=== PATIENT | male | born 1985 | race Caucasian/White ===

== ENCOUNTER 2017-07-02 10:30 | Emergency (ER) | payer OTHER ==
[2017-07-02 10:37] VITALS: TEMP 98.3; BMI 24.0
--- NOTE | 2017-07-02 11:22 | PDOC ---
*Physical Exam - Vital Signs Last Vital Signs Temp Pulse Resp BP Pulse Ox 98.3 F 65 16 137/84 100 07/02/17 10:34 07/02/17 10:34 07/02/17 10:34 07/02/17 10:34 07/02/17 10:34 Medical Decision Making - Medical Decision Making 07/02/17 13:31 Pt seen by the Advanced Practice Provider under my direct supervision Ancillary studies reviewed I agree with plan as outlined by the Advanced Practice Provider *DC/Admit/Observation/Transfer Diagnosis at time of Disposition: Acute epididymitis - Discharge Dispostion Disposition: HOME Condition at time of disposition: Good - Prescriptions Prescriptions: Ibuprofen [Motrin -] 600 mg PO QID #20 tablet - Referrals Referrals: Sridhar Douglas MD [Primary Care Provider] - - Patient Instructions Printed Discharge Instructions: DI for Epididymitis Additional Instructions: Please take Motrin as needed for pain and recommend follow-up with urology if symptoms persist He is called [phone] in one week for results of testing - Post Discharge Activity Forms/Work/School Notes: Back to Work - Attestations Physician Attestion: 07/02/17 13:33 I, Dr. Art Valdes MD, attest that this document has been prepared under my direction and personally reviewed by me in its entirety. I further attest, that it accurately reflects all work, treatment, procedures and medical decision -making performed by me.
[2017-07-02 11:54] LABS: URINE APPEARANCE CLEAR; URINE BILIRUBIN NEGATIVE (NEGATIVE); URINE BLOOD 1+ (NEGATIVE); URINE COLOR YELLOW; URINE GLUCOSE (UA) NEGATIVE (NEGATIVE); URINE KETONE NEGATIVE (NEGATIVE); URINE NITRITE NEGATIVE (NEGATIVE); URINE UROBILINOGEN NEGATIVE mg/dL (0.2-1.0)
[2017-07-02 11:55] LABS: URINE PROTEIN 1+ (NEGATIVE)
[2017-07-02 11:56] LABS: URINE RBC 2 /hpf (0-3); URINE WBC 1 /hpf (3-5)
--- NOTE | 2017-07-02 12:30 | PDOC ---
History of Present Illness - General Chief Complaint: Pain, Acute Stated Complaint: TESTICULAR PAIN Time Seen by Provider: 07/02/17 11:04 History Source: Patient Exam Limitations: No Limitations - History of Present Illness Initial Comments: 07/02/17 12:26 Patient is a 32-year-old male, no significant medical history on no medication presents with right testicular pain which started yesterday. Patient reports he had mild pain only when ambulating which got worse after having sex with his . Pain to right testicle feels that right testicle is slightly higher than the left testicle. Patient denies any urinary pain. No lymphadenopathy. No fever. No penile discharge or lesions. No penile trauma. No penile or testicular swelling.] Past Medical History: [Denies]. Allergies: No known allergies Medications: [None] Family History: Non-contributory Social History: Denies smoking, alcohol use, or IVDU Review of Systems GENERAL/CONSTITUTIONAL: [No fever or chills. No weakness. No weight change.] HEAD, EYES, EARS, NOSE AND THROAT: [No change in vision. No ear pain or discharge. No sore throat. ] CARDIOVASCULAR: [No chest pain or shortness of breath.] RESPIRATORY: [No cough, wheezing, or hemoptysis.] GASTROINTESTINAL: [No nausea, vomiting, diarrhea or constipation. No rectal bleeding.] GENITOURINARY: [No dysuria, frequency, or change in urination. Pain to right testicle, no penile discharge or lesions.] MUSCULOSKELETAL: [No joint or muscle swelling or pain. No neck or back pain.] SKIN : [No rash or easy bruising.] NEUROLOGIC: [No headache, vertigo, loss of consciousness, or loss of sensation.] PSYCHIATRIC: [No depression or anxiety.] ENDOCRINE: [No increased thirst. No abnormal weight change.] HEMATOLOGIC/LYMPHATIC: [No anemia, easy bleeding, or history of blood clots.] ALLERGIC/IMMUNOLOGIC: [No hives or skin allergy. No latex allergy.] Physical Exam: GENERAL: [The patient is awake, alert, and fully oriented, in no acute distress. ] HEAD: [Normal with no signs of trauma.] EYES: [Pupils equal, round and reactive to light, extraocular movements intact, sclera anicteric, conjunctiva clear.] ENT: [Ears normal, nares patent, oropharynx clear without exudates. Moist mucous membranes. No uvula deviation] NECK: [Normal range of motion, supple without lymphadenopathy, JVD, or masses.] LUNGS: [Breath sounds equal, clear to auscultation bilaterally. No wheezes, and no crackles.] HEART: [Regular rate and rhythm, normal S1 and S2 without murmur, rub or gallop. ] ABDOMEN: [Soft, nontender, normoactive bowel sounds. No guarding, no rebound. No masses. No bruising or abrasions] GENITALIA: Pain to right testicle, right testicle is mildly higher than the left testicle there is no pain on palpation to epididymis, posterior testicles. Good cremasteric reflex, no discoloration, no lesions, no penile discharge RECTAL : [Guaiac negative, normal rectal tone.] MUSCULOSKELETAL: [Normal range of motion, no edema. No clubbing or cyanosis. No cords, erythema, or tenderness. No CVA Tenderness with fist.] NEUROLOGICAL: [Cranial nerves II through XII grossly intact. Normal speech, normal gait.] PSYCH: [Normal mood, normal affect.] SKIN: [Warm, Dry, normal turgor, no rashes or lesions noted.] Past History - Past Medical History Allergies/Adverse Reactions: Allergies Allergy/AdvReac Type Severity Reaction Status Date / Time No Known Allergies Allergy Verified 07/02/17 10:33 Home Medications: Ambulatory Orders Ibuprofen [Motrin -] 600 mg PO QID #20 tablet 07/02/17 CVA: No COPD: No DVT: No - Immunization History Immunization Up to Date: Yes - Suicide/Smoking/Psychosocial Hx Smoking History: Never smoked Have you smoked in the past 12 months: No Information on smoking cessation initiated: No Hx Alcohol Use: No Drug/Substance Use Hx: No Substance Use Type: None *Physical Exam - Vital Signs Last Vital Signs Temp Pulse Resp BP Pulse Ox 98.3 F 65 16 137/84 100 07/02/17 10:34 07/02/17 10:34 07/02/17 10:34 07/02/17 10:34 07/02/17 10:34 ED Treatment Course - ADDITIONAL ORDERS Additional order review: Laboratory Results 07/02/17 11:39 Urine Color Yellow Urine Appearance Clear Urine pH 5.0 Ur Specific [place] 1.026 Urine Protein 1+ H Urine Glucose (UA) Negative Urine Ketones Negative Urine Blood 1+ H Urine Nitrite Negative Urine Bilirubin Negative Urine Urobilinogen Negative Urine WBC (Auto) 1 Urine RBC (Auto) 2 - RADIOLOGY Radiology Studies Ordered: Category Date Time Status SCROTUM AND CONTENTS US [US] Stat Ultrasound 07/02/17 11:07 Taken Medical Decision Making - Medical Decision Making 07/02/17 12:29 A/P: Patient with right testicular pain. Urinalysis, urine culture, gonorrhea Chlamydia, and ultrasound of right testicle ordered. 07/02/17 13:16 Laboratory Results - last 24 hr 07/02/17 11:39 Urine Color Yellow Urine Appearance Clear Urine pH 5.0 Ur Specific [place] 1.026 Urine Protein 1+ H Urine Glucose (UA) Negative Urine Ketones Negative Urine Blood 1+ H Urine Nitrite Negative Urine Bilirubin Negative Urine Urobilinogen Negative Urine WBC (Auto) 1 Urine RBC (Auto) 2 07/02/17 13:19 Ultrasound demonstrated hyperemia of the right testicle suggestive of orchitis. No evidence of testicular torsion will give patient 1 g of azithromycin and Rocephin 250 mg IM 1. Patient to follow up with urology. Motrin for pain. I discussed the physical exam findings, ancillary test results and final diagnoses with the patient. I answered all of the patient's questions. The patient was satisfied with the care received and felt comfortable with the discharge plan and treatment plan. The patient will call to arrange follow-up and will return to the Emergency Department with any new, persistent or worsening symptoms. *DC/Admit/Observation/Transfer Diagnosis at time of Disposition: Acute epididymitis - Discharge Dispostion Disposition: HOME Condition at time of disposition: Good Admit: No - Prescriptions Prescriptions: Ibuprofen [Motrin -] 600 mg PO QID #20 tablet - Referrals Referrals: Sridhar Douglas MD [Primary Care Provider] - - Patient Instructions Printed Discharge Instructions: DI for Epididymitis Additional Instructions: Please take Motrin as needed for pain and recommend follow-up with urology if symptoms persist He is called [phone] in one week for results of testing - Post Discharge Activity Forms/Work/School Notes: Back to Work
[2017-07-02] MEDS ORDERED: AZITHROMYCIN 1 GM PACKET PO ONE (13:08)
[2017-07-02] MEDS ORDERED: cefTRIAXone SODIUM 1 GM VIAL ONE (13:38)
[2017-07-02] MEDS ORDERED: AZITHROMYCIN 250 MG TABLET ONE (13:38)
[2017-07-02 14:13] LABS: URINE LEUK ESTERASE Negative (NEGATIVE)
[2017-07-02 14:14] VITALS: BP 128/70; PULSE 71
== END 2017-07-02 14:00 | disposition home or self-care (01) ==
LOC: JER 10:30
DX: N45.1 Epididymitis (principal)
CPT/HCPCS: 36415; 76870-TC; 81003; 81015; 87086; 87491; 87591; 96372; 99282-25

== ENCOUNTER 2018-10-02 09:04 | Emergency (ER) | payer OTHER ==
[2018-10-02 09:31] VITALS: BP 151/87; PULSE 66; TEMP 98; BMI 24.0
--- NOTE | 2018-10-02 10:10 | PDOC ---
History of Present Illness - General Chief Complaint: Back Pain Stated Complaint: LOWER BACK PAIN Time Seen by Provider: 10/02/18 09:35 History Source: Patient Exam Limitations: No Limitations - History of Present Illness Occurred: reports: other (patient here with complaints of one year of low back pain. States the past few days is progressively worsened. Denies numbness and tingling to hands or feet, but states is radiating now up to his shoulders. 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 Denies any changes in exercise denies any knowledge of one specific incident that caused worsening of his back pain. Has taken no medication for relief. Denies fevers, numbness or tingling to feet, no problems with bowel or bladder.) Loss of Consciousness: no loss of consciousness Past History - Travel Traveled outside of the country in the last 30 days: No Close contact w/someone who was outside of country & ill: No - Past Medical History Allergies/Adverse Reactions: Allergies Allergy/AdvReac Type Severity Reaction Status Date / Time No Known Allergies Allergy Verified 10/02/18 09:29 Home Medications: Ambulatory Orders Ibuprofen [Motrin -] 600 mg PO QID #20 tablet 07/02/17 Cyclobenzaprine HCl 10 mg PO Q8H PRN #14 tablet 10/02/18 Naproxen [Naprosyn -] 500 mg PO BID #30 tablet 10/02/18 CVA: No COPD: No DVT: No - Immunization History Immunization Up to Date: Yes - Suicide/Smoking/Psychosocial Hx Smoking History: Never smoked Have you smoked in the past 12 months: No Information on smoking cessation initiated: No Hx Alcohol Use: No Drug/Substance Use Hx: No Substance Use Type: None Review of Systems - Review of Systems Able to Perform ROS?: Yes Is the patient limited Bulgarian proficient: Yes Constitutional: Yes: Symptoms Reported, See HPI, Malaise. No: Fever HEENTM: No: Symptoms Reported Respiratory: No: Symptoms reported Musculoskeletal: Yes: Symptoms Reported, See HPI, Muscle Pain, Muscle Weakness Integumentary: Yes: Symptoms Reported All Other Systems: Reviewed and Negative *Physical Exam - Vital Signs Last Vital Signs Temp Pulse Resp BP Pulse Ox 98.0 F 66 16 151/87 100 10/02/18 09:29 10/02/18 09:29 10/02/18 09:29 10/02/18 09:29 10/02/18 09:29 - Physical Exam General Appearance: Yes: Appropriately Dressed, Apparent Distress, Mild Distress HEENT: positive: SAUL, Normal ENT Inspection, TMs Normal, Pharynx Normal Neck: negative: Tender Respiratory/Chest: positive: Lungs Clear Musculoskeletal: positive: Normal Inspection, Muscle Spasm (mild spasm noted to the paravertebral spinous muscles of lumbar spine, no true bone tenderness crepitus or step-offs to spinal column. This spasm radiates up the right and left side to scapular wing.). negative: CVA Tenderness (L), Vertebral Tenderness Extremity: positive: Normal Capillary Refill Integumentary: positive: Normal Color Neurologic: positive: shape hand II-XII NML intact, Fully Oriented, Alert, Normal Mood/ Affect Moderate Sedation - Procedure Monitoring Vital Signs: Procedure Monitoring Vital Signs Temperature 98.0 F 10/02/18 09:29 Pulse Rate 66 10/02/18 09:29 Respiratory Rate 16 10/02/18 09:29 Blood Pressure 151/87 10/02/18 09:29 O2 Sat by Pulse Oximetry (%) 100 10/02/18 09:29 Progress Note - Progress Note Progress Note: Muscle strain, low back. We'll treat with NSAIDs and cyclobenzaprine *DC/Admit/Observation/Transfer Diagnosis at time of Disposition: Low back strain Qualifiers: Encounter type: initial encounter Qualified Code(s): S39.012A - Strain of muscle, fascia and tendon of lower back, initial encounter - Discharge Dispostion Disposition: HOME Condition at time of disposition: Stable Decision to Admit order: No - Referrals - Patient Instructions Printed Discharge Instructions: DI for Back Strain or Sprain Additional Instructions: Rest, no heavy lifting or exercise until pain is resolved Hot soaks to neck and low back as often as possible/hot showers or Jacuzzis No massage or therapy until spasm is gone Continue Naprosyn 500 mg tablet, 1 tablet every 8 hours for the next 3 days then as needed for pain and swelling Cyclobenzaprine 1-10mg every 8 hours as needed for spasm If not significant improvement within 24 hours with medication and rest regime, followup with private physician for change in medications and /or therapy. - Post Discharge Activity
== END 2018-10-02 10:12 | disposition home or self-care (01) ==
LOC: JERFT 09:04
DX: S39.012A Strain of muscle, fascia and tendon of lower back, initial encounter (principal); M62.830 Muscle spasm of back; X58.XXXA Exposure to other specified factors, initial encounter; Y93.89 Activity, other specified; Y92.89 Other specified places as the place of occurrence of the external cause; Y99.8 Other external cause status
CPT/HCPCS: 99281-25

== ENCOUNTER 2019-06-16 14:12 | Emergency (ER) | payer OTHER ==
[2019-06-16 14:18] VITALS: BP 149/99; PULSE 77; TEMP 100; BMI 24.0
[2019-06-16] MEDS ORDERED: IBUPROFEN 600 MG TABLET (FP) PO ONE ×2 (14:24→14:38)
--- NOTE | 2019-06-16 14:52 | PDOC ---
History of Present Illness - General Chief Complaint: Sore Throat Stated Complaint: SORE THROAT/COUGHING Time Seen by Provider: 06/16/19 14:24 - History of Present Illness Initial Comments: 06/16/19 14:48 CHIEF COMPLAINT: sore throat HISTORY OF PRESENT ILLNESS: 34 yo M presents to [facility] with sore throat x 3- 4 days. Patient reports he has been coughing for the past few days and now has pain and feels "bubbling when I swallow." He denies any fever, vomiting, or diarrhea and associates his fever in triage to be "from the hot drink I was having just before they took my temperature." No recent travel or sick contacts. PAST MEDICAL HISTORY: Denies past medical history FAMILY HISTORY: Denies SOCIAL HISTORY: Denies tobacco, alcohol, illicit drug use. SURGICAL HISTORY: Denies ALLERGIES: No known drug allergies REVIEW OF SYSTEMS General/Constitutional: Denies fever or chills. Denies weakness, weight change. HEENT: Sore throat. Denies change in vision. Denies ear pain or discharge. Cardiovascular: Denies chest pain or shortness of breath. Respiratory: Denies cough, wheezing, or hemoptysis. Gastrointestinal: Denies nausea, vomiting, diarrhea or constipation. Denies rectal bleeding. Genitourinary: Denies dysuria, frequency, or change in urination. Musculoskeletal: Denies joint or muscle swelling or pain. Denies neck or back pain. Skin and breasts: Denies rash or easy bruising. Neurologic: Denies headache, vertigo, loss of consciousness, or loss of sensation. Psychiatric: Denies depression or anxiety. PHYSICAL EXAM General Appearance: Well-appearing, appropriately dressed. No apparent distress , no intoxication. HEENT: EOMI, PERRLA, normal ENT inspection, normal voice, TMs normal, pharynx normal. No conjunctival pallor. No photophobia, scleral icterus. Neck: Supple. Trachea midline. No tenderness, rigidity, carotid bruit, stridor , lymphadenopathy, or thyromegaly. Respiratory/Chest: Lungs CTAB. No shortness of breath, chest tenderness, respiratory distress, accessory muscle use. No crackles, rales, rhonchi, stridor , wheezing, dullness Cardiovascular: RRR. S1, S2. No JVD, murmur, bradycardia, tachycardia. Vascular Pulses: Dorsalis-Pedis (R): 2+, Dorsalis-Pedis (L): 2+ Gastrointestinal/Abdominal: Normal bowel sounds. Abdomen soft, non-distended. No tenderness or rebound tenderness. No organomegaly, pulsatile mass, guarding , hernia, hepatomegaly, splenomegaly. Lymphatic: No adenopathy, tenderness. Musculoskeletal/Extremities: Normal inspection. FROM of all extremities, normal capillary refill. Pelvis Stable. No CVA tenderness. No tenderness to extremities, pedal edema, swelling, erythema or deformity. Integumentary: Appropriate color, dry, warm. No cyanosis, erythema, jaundice or rash Neurologic: clinical care leader II-XII intact. Fully oriented, alert. Appropriate mood/affect. Motor strength 5/5. No appreciable EOM palsy, facial droop or sensory deficit. Past History - Past Medical History Allergies/Adverse Reactions: Allergies Allergy/AdvReac Type Severity Reaction Status Date / Time No Known Allergies Allergy Verified 06/16/19 14:18 Home Medications: Ambulatory Orders Cyclobenzaprine HCl 10 mg PO Q8H PRN #14 tablet 10/02/18 Naproxen [Naprosyn -] 500 mg PO BID #30 tablet 10/02/18 Ibuprofen [Motrin -] 600 mg PO QID #20 tablet 06/16/19 CVA: No COPD: No DVT: No - Immunization History Immunization Up to Date: Yes - Psycho Social/Smoking Cessation Hx Smoking History: Never smoked Have you smoked in the past 12 months: No Hx Alcohol Use: No Drug/Substance Use Hx: No Substance Use Type: None *Physical Exam - Vital Signs Last Vital Signs Temp Pulse Resp BP Pulse Ox 100.0 F H 77 18 149/99 99 06/16/19 14:16 06/16/19 14:16 06/16/19 14:16 06/16/19 14:16 06/16/19 14:16 ED Treatment Course - Medications Given in the ED: ED Medications Discontinued Medications Generic Name Dose Route Start Last Admin Trade Name Freq PRN Reason Stop Dose Admin Ibuprofen 600 mg 06/16/19 14:24 06/16/19 14:39 Motrin - PO 06/16/19 14:25 600 mg ONCE ONE Administration Medical Decision Making - Medical Decision Making 06/16/19 14:52 34 yo M presents to [facility] with sore throat x 3-4 days. -motrin -strep swab 06/16/19 19:57 strep negative. likely URI given recent cough prior to onset of sore throat. Advised patient to take medication as prescribed and follow up with PCP if symptoms persist. Advised patient of signs and symptoms for return to ED. Patient verbalized understanding and agrees to plan. Discharge - Discharge Information Problems reviewed: Yes Clinical Impression/Diagnosis: Pharyngitis Qualifiers: Pharyngitis/tonsillitis etiology: unspecified etiology Qualified Code(s): J02.9 - Acute pharyngitis, unspecified Condition: Stable Disposition: HOME - Admission No - Additional Discharge Information Prescriptions: Ibuprofen [Motrin -] 600 mg PO QID #20 tablet - Follow up/Referral Referrals: Dany Abdul MD [Staff Physician] - - Patient Discharge Instructions Patient Printed Discharge Instructions: DI for Viral Pharyngitis Additional Instructions: Please take medications as prescribed. Gargle an entire glass of warm salt water 4 times daily. Follow up with your primary care doctor next week for continued monitoring of your symptoms. If you develop any new or worsening symptoms, please return to the ER. - Post Discharge Activity
== END 2019-06-16 15:22 | disposition home or self-care (01) ==
LOC: JERFT 14:12
DX: J02.9 Acute pharyngitis, unspecified (principal)
CPT/HCPCS: 87070; 87880; 99281-25